=== PATIENT | male | born 1985 | race Caucasian/White ===

== ENCOUNTER 2022-06-02 21:23 | Emergency (ER) | payer OTHER, SELFPAY ==
[2022-06-02] VITALS (8 sets, daily range): BP systolic 150–187; BP diastolic 84–109; PULSE 75–96; RESP 13–20; TEMP 36.7; O2SAT 94–100
--- NOTE | ~2022-06-02 | CT_ITS ---
EXAMINATION: CT abdomen pelvis w con DATE: 06/02/2022 22:39 INDICATION: Severe stabbing periumbilical abdominal pain TECHNIQUE: Computed tomography (CT) of the abdomen and pelvis was performed with 100 CC Omnipaque 300 intravenous contrast. Automated exposure control and iterative reconstruction technique were employe d. Exam dose: 1754.61 mGy-cm total exam DLP. COMPARISON: None. FINDINGS: The lung bases are clear of infiltrate or consolidation aren't size is within upper normal range. No pericardial or pleural effusion. The liver, gallbladder, bile ducts, spleen, pancreas and pancreatic duct appear normal. Normal morphology of the adrenal glands. 8 mm probable lower pole right renal cyst. 2.9 cm exophytic anterior lower pole left renal cyst. No u rinary tract calculus or hydroureteronephrosis. The urinary bladder and prostate gland are unremarkab le. Normal caliber of the abdominal aorta. No intraperitoneal or retroperitoneal or pelvic mass lesion or adenopathy or ascites. Normal appendix. No bowel obstruction, bowel wall thickening, pneumatosis or intraperitoneal free air . Degenerative changes of the thoracic and lumbar spine. No suspicious osteolytic or osteosclerotic les ions. IMPRESSION: Renal cysts Normal appendix Reviewed, dictated and finalized at [facility]. Reviewed, dictated and finalized at [facility]. IMPRESSION: Renal cysts Normal appendix
--- NOTE | 2022-06-02 21:39 | ECG_ITS ---
Measurements Intervals [place] Rate: 77 P: 46 W[place]: 148 QRS: 6 QRSD: 101 T: 8 QT: 344 QTc: 391 Interpretive Statements SINUS RHYTHM LOW QRS VOLTAGE IN PRECORDIAL LEADS BORDERLINE R WAVE PROGRESSION, ANTERIOR LEADS BORDERLINE T WAVE ABNORMALITY- INFERIOR LEADS BASELINE ARTIFACT- I, II, III, AVR, AVL, AVF, V1-V3, V6 BORDERLINE ECG Electronically Signed On 06-03-2022 7:17:07 CDT by Bronson Schwarz D.O.
--- NOTE | 2022-06-02 21:41 | ED.ABDPAIN ---
HPI - Abdominal Pain General Chief Complaint: Abdominal Pain Stated Complaint: abd pain Time Seen by Provider: 06/02/22 21:32 Source: patient Mode of arrival: ambulatory Limitations: no limitations History of Present Illness HPI narrative: 37 year old male presents today with complaints of severe abdominal pain that started about 1 hours ago. Pain is in the umbilicus region and patient states it was tender for the last day. Patient with history of abdominal hernia, no abdominal surgeries. Last BM today and per patient was normal. Patient denies nausea at this time. Related Data Home Medications Medication Instructions Recorded Confirmed fluticasone propionate 50 1 spray intranasal BID PRN 10/07/19 06/27/21 mcg/actuation nasal ALLERGIES spray,suspension (Flonase Allergy Relief) bupropion HCl 150 mg 24 hr tablet, 150 mg PO QAM 06/27/21 06/27/21 extended release (Wellbutrin XL) testosterone enanthate 100 mg/0.5 100 mg subcut WEEKLY 06/27/21 06/27/21 mL subcutaneous auto-injector (Xyosted) Allergies Allergy/AdvReac Type Severity Reaction Status Date / Time Sulfa (Sulfonamide Allergy Unknown RASH, Verified 06/27/21 11:18 Antibiotics) DIFFICULTY BREATHING Review of Systems Review of Systems: CONSTITUTIONAL: Denies fever, chills, or sweats. EYES: Denies visual changes, redness, or discharge. ENT: Denies rhinorrhea, congestion, sore throat, or otalgia. CARDIOVASCULAR: Denies chest pain, palpitations, or edema. RESPIRATORY: Denies cough or dyspnea. GASTROINTESTINAL: Abdominal pain starting 1 hour ago. Denies nausea, vomiting, or diarrhea. GENITOURINARY: Denies dysuria or hematuria. SKIN: Denies rash or itching. MUSCULOSKELETAL: Denies back pain, joint pain, or myalgia. NEUROLOGIC: Denies headache, numbness, dizziness, or weakness. PSYCHIATRIC: Denies anxiety or depression. [facility] Past Medical History Medical History Back pain of thoracolumbar region (~2010) BMI 37.0-37.9, adult BMI 45.0-49.9, adult (~03/2017) DJD (degenerative joint disease) of thoracic spine (~2010) Hyperlipidemia, unspecified JADEN (obstructive sleep apnea) (~2010) Testicular hypofunction (~02/15/16) Dr. Roberson: urologist: (2018) Surgical History Surgical History H/O removal of testicle H/O vasectomy (~09/2019) Family History Family History Mother Diabetes mellitus Family history of obesity Father Diabetes mellitus Family history of cardiovascular disease Family history of arthritis Family history of malignant neoplasm of breast Family history of lupus erythematosus Other Family history of chronic obstructive pulmonary disease Family history of emphysema Family history of osteoporosis Social History Social History Smoking status: Never smoker Alcohol intake: current Exam Narrative: GENERAL: Ill-appearing, well-nourished, and in acute distress due to pain 10 out of 10 HEAD: Normocephalic, atraumatic. EYES: PERRLA and EOMI. NECK: Supple. No adenopathy or masses. No carotid bruits or JVD CHEST: Clear to auscultation. No respiratory distress. No wheezes rales or rhonchi HEART: Regular rate and rhythm. No murmur heard. Normal peripheral pulses. ABDOMEN: Tender, abdomen rigid. Nondistended, normal active bowel sounds. EXTREMITIES: Normal range of motion. No edema. SKIN: Warm, sweating, no rash. NEURO: No focal deficits. Alert and oriented x3. PSYCH: Normal mood and affect. Course Reevaluation(s) Reevaluation #1: Patient with improved pain after Bentyl, Pepcid, and Compazine. Labs and CT reviewed again. Patient to be discharged home with plan follow up with primary. Patient and in agreement with plan of care. Date: 06/03/22 Time: 00:05 Vital Signs Vital signs:
[2022-06-02] MEDS: ONDANSETRON INJ 4 MG/2 ML VIAL IV PUSH (21:49)
[2022-06-02] MEDS: fentaNYL CITRATE INJ (*CRX) 100 MCG/2 ML VIAL 50 MCG IV PUSH (21:49)
[2022-06-02] MEDS: SODIUM CHLORIDE 0.9% IV 1,000 ML 999 ML IV CONT (21:49)
[2022-06-02 21:56] LABS: Basophils Absolute Auto 0.1 K/mm3 (0.0-0.1); Basophils Percent Auto 0.5 % (0.2-1.2); Eosinophils Absolute Auto 0.2 K/mm3 (0-0.3); Eosinophils Percent Auto 2.5 % (0-4.4); Hematocrit 51.3 % (42.0-52.0); Hemoglobin 17.1 g/dL (14.0-18.0); Immature Granulocyte Absolute 0.11 K/mm3 (0.00-0.031); Immature Granulocyte Percent A 1.2 % (0-0.5); Lymphocytes Absolute Auto 3.28 K/mm3 (0.9-3.2); Mean Corpuscular HGB Conc 33.3 g/dl (32-36); Mean Corpuscular Hemoglobin 28.5 pg (26-34); Mean Corpuscular Volume 85.5 fl (80-100); Mean Platelet Volume 10.1 fl (7.4-10.4); Monocytes Absolute Auto 0.6 K/mm3 (0.1-0.6); Monocytes Percent Auto 6.8 % (2.6-8.5); Neutrophils Absolute Auto 4.8 K/mm3 (1.3-6.7); Platelet Count Result 177 k/mm3 (150-375); Red Cell Distribution Width 14.6 % (11.5-14.5); White Blood Count 9.1 K/mm3 (4.5-10.0)
--- NOTE | 2022-06-02 21:58 | PC.NURSE ---
Pt refusing straight cath at this time.
[2022-06-02 22:05] LABS: INR 0.9; Prothrombin Time 12.2 Seconds (11.1-14.7)
[2022-06-02 22:06] LABS: Partial Thromboplastin Time 27.3 SECONDS (22.3-36.8)
[2022-06-02 22:08] LABS: Appearance Urine Clear (Clear); Bilirubin Urine Negative (Negative); Blood Urine Negative (Negative); Color Urine Yellow (Yellow); Glucose Urine UA Negative (Negative); Ketones Urine Negative (Negative); Leukocyte Esterase Ur Negative LEU/UL (Negative); Nitrate Urine Negative (Negative); Protein Urine Negative (Negative); Urobilinogen Urine 0.2 mg/dL (<2.0)
[2022-06-02 22:08] LABS: Alanine Aminotransferase 32 U/L (6-50); Albumin Level 4.5 g/dL (3.5-5.1); Alkaline Phosphatase 108 U/L (38-126); Anion Gap 7 mmol/L (8-16); Aspartate Amino Transferase 22 U/L (17-59); Bilirubin,Total 0.7 mg/dL (0.2-1.3); Blood Urea Nitrogen 14 mg/dL (9-20); Calcium 9.4 mg/dL (8.4-10.2); Carbon Dioxide 28 mmol/L (22-30); Chloride 104 mmol/L (98-107); Estimated CRCL calculation 132 ml/min; Estimated Glomerular Filt Rate > 60; Glucose 106 mg/dL (65-110); Lipase 60 U/L (23-300); Potassium 3.9 mmol/L (3.4-5.0); Sodium 139 mmol/L (137-145)
[2022-06-02 22:11] LABS: Add Urine Microscopic? NO
[2022-06-02 22:20] LABS: Troponin I < 0.012 ng/mL (0.000-0.034)
[2022-06-02] MEDS: DICYCLOMINE HCL INJ 20 MG/2 ML VIAL IM (23:13)
[2022-06-02] MEDS: FAMOTIDINE 20 MG/2 ML VIAL IV PUSH (23:13)
[2022-06-02] MEDS: PROCHLORPERAZINE EDISYLATE 10 MG/2 ML VIAL IV PUSH (23:13)
[2022-06-02 23:31] LABS: Lactic Acid Reflex 1.3 mmol/L (0.7-2.0)
[2022-06-03 00:33] VITALS: BP 151/84; PULSE 64; RESP 16; O2SAT 95
== END 2022-06-03 00:35 | disposition home or self-care (01) ==
PROVIDERS: Emergency Medicine; Emergency Provider Nurse Practitioner Family; PCP Family Medicine Sports Medicine
DX: R10.84 Generalized abdominal pain (principal); E78.5 Hyperlipidemia, unspecified; G47.33 Obstructive sleep apnea (adult) (pediatric); M47.814 Spondylosis without myelopathy or radiculopathy, thoracic region
CPT/HCPCS: 36415; 74177; 80053; 81003; 83605; 83690; 84484; 85025; 85610; 85730; 93005; 96361; 96374; 96375; 99284; J0500; J0780; J2405; J3010; J7030; Q9967

== ENCOUNTER 2024-06-01 09:00 | Emergency (ER) | payer BC, SELFPAY ==
--- NOTE | ~2024-06-01 | XR_ITS ---
EXAMINATION: XR elbow RT min 3V DATE: 06/01/2024 09:26 INDICATION: Right elbow pain. Fall. TECHNIQUE: 3 views of right elbow were obtained. COMPARISON: None. FINDINGS: Bone alignment is normal. No fracture. There is mild elbow joint osteoarthritis. No elbow j oint effusion. There is soft tissue swelling overlying the olecranon. IMPRESSION: 1. Mild elbow joint osteoarthritis. Reviewed, dictated and finalized at [facility].
[2024-06-01 09:07] VITALS: BP 116/87; PULSE 77; RESP 16; TEMP 36.4; O2SAT 99
--- NOTE | 2024-06-01 09:17 | ED.GENADULT ---
HPI - General Adult General Chief complaint: Extremity Injury, Upper Stated complaint: Injured Right Elbow Source: patient Mode of arrival: ambulatory Limitations: no limitations History of Present Illness HPI narrative: Pt presents for evaluation of right elbow pain for the past 3 days. He was at [place] water park [place] when he [place] backward and hit his right elbow against a concrete ledge. He did not his head. No loss of consciousness. He is not on blood thinners. At rest his pain is controlled, but with movement his pain increases to 7/10 in severity. No radicular component. No paresthesias. He took 400 mg of ibuprofen without considerable improvement in his symptoms or after. He is right-hand dominant. Related Data Home Medications Medication Instructions Recorded Confirmed fluticasone propionate 50 1 spray intranasal BID PRN 10/07/19 09/07/23 mcg/actuation nasal ALLERGIES spray,suspension (Flonase Allergy Relief) testosterone enanthate 100 mg/0.5 100 mg subcut WEEKLY 06/27/21 09/07/23 mL subcutaneous auto-injector (Xyosted) anastrozole 1 mg tablet 1 mg PO DAILY 09/07/23 09/07/23 bupropion HCl 150 mg 24 hr tablet, 300 mg PO QAM 09/07/23 09/07/23 extended release (Wellbutrin XL) cetirizine 5 mg tablet 5 mg PO DAILY PRN 09/07/23 09/07/23 Allergies Allergy/AdvReac Type Severity Reaction Status Date / Time Sulfa (Sulfonamide Allergy Unknown RASH, Verified 09/07/23 13:28 Antibiotics) DIFFICULTY BREATHING Review of Systems Review of Systems: CONSTITUTIONAL: Denies fever, chills, or sweats. EYES: Denies visual changes, redness, or discharge. ENT: Denies rhinorrhea, congestion, sore throat, or otalgia. CARDIOVASCULAR: Denies chest pain, palpitations, or edema. RESPIRATORY: Denies cough or dyspnea. GASTROINTESTINAL: Denies abdominal pain, nausea, vomiting, or diarrhea. GENITOURINARY: Denies dysuria or hematuria. SKIN: Denies rash or itching. MUSCULOSKELETAL:Reports right elbow pain NEUROLOGIC: Denies headache, numbness, dizziness, or weakness. PSYCHIATRIC: Denies anxiety or depression. [facility] Past Medical History Medical History Back pain of thoracolumbar region (~2010) BMI 37.0-37.9, adult BMI 45.0-49.9, adult (~03/2017) Diabetes DJD (degenerative joint disease) of thoracic spine (~2010) Hyperlipidemia, unspecified JADEN (obstructive sleep apnea) (~2010) Testicular hypofunction (~02/15/16) Dr. Roberson: urologist: (2018) Surgical History Surgical History H/O removal of testicle H/O vasectomy (~09/2019) Family History Family History Mother Diabetes mellitus Family history of obesity Father Diabetes mellitus Family history of cardiovascular disease Family history of arthritis Family history of malignant neoplasm of breast Family history of lupus erythematosus Other Family history of chronic obstructive pulmonary disease Family history of emphysema Family history of osteoporosis Social History Social History Smoking status: Never smoker Alcohol intake: current Gender identity (if verbalized by the patient): Male Spiritual care concerns: No Exam Narrative: GENERAL: Well-appearing, well-nourished, and in no acute distress. HEAD: Normocephalic, atraumatic. EYES: PERRLA and EOMI. ENT: Nares clear, no rhinorrhea or epistaxis. Mucous membranes moist. Oropharynx without tonsillar hypertrophy exudate or other lesions. Bilateral TMs pearly hardin nonbulging NECK: Supple. No adenopathy or masses. No carotid bruits or JVD CHEST: Clear to auscultation. No respiratory distress. No wheezes rales or rhonchi HEART: Regular rate and rhythm. No murmur heard. Normal peripheral pulses. [facility]BD[facility]
== END 2024-06-01 09:48 | disposition home or self-care (01) ==
PROVIDERS: Emergency Provider Nurse Practitioner; PCP Family Medicine
DX: S50.01XA Contusion of right elbow, initial encounter (principal); W19.XXXA Unspecified fall, initial encounter; E11.9 Type 2 diabetes mellitus without complications; M47.814 Spondylosis without myelopathy or radiculopathy, thoracic region; E78.5 Hyperlipidemia, unspecified; Z98.52 Vasectomy status
CPT/HCPCS: 73080; 99213; A4565; G0463

== ENCOUNTER 2024-08-10 12:17 | Emergency (ER) | payer BC, SELFPAY ==
[2024-08-10 12:34] VITALS: BP 126/67; PULSE 86; RESP 16; TEMP 36.7; O2SAT 98
[2024-08-10 12:55] LABS: EDCOVIDSCREEN Positive (Negative); EDINFLUASCREEN Negative (Negative); EDINFLUBSCREEN Negative (Negative); EDSTREPNEGPOS1 Negative (Negative)
--- NOTE | 2024-08-10 17:25 | ED.URI ---
HPI - URI/Sore Throat General Chief Complaint: Upper Respiratory Infection Stated Complaint: Sore Throat Time Seen by Provider: 08/10/24 13:11 Source: patient and RN notes reviewed Mode of arrival: ambulatory Limitations: no limitations History of Present Illness HPI Narrative: Patient presents today complaining of headache, sore throat, fatigue, nasal congestion. Symptoms began yesterday. Denies shortness of breath or chest pain. He has been taking Sudafed and Flonase without relief. Related Data Home Medications Medication Instructions Recorded Confirmed fluticasone propionate 50 1 spray intranasal BID PRN 10/07/19 08/10/24 mcg/actuation nasal ALLERGIES spray,suspension (Flonase Allergy Relief) testosterone enanthate 100 mg/0.5 100 mg subcut WEEKLY 06/27/21 08/10/24 mL subcutaneous auto-injector (Xyosted) anastrozole 1 mg tablet 1 mg PO DAILY 09/07/23 08/10/24 bupropion HCl 150 mg 24 hr tablet, 300 mg PO QAM 09/07/23 08/10/24 extended release (Wellbutrin XL) cetirizine 5 mg tablet 5 mg PO DAILY 09/07/23 08/10/24 semaglutide 2 mg/dose (8 mg/3 mL) 2 mg subcut WEEKLY 08/10/24 08/10/24 subcutaneous pen injector (Ozempic) Allergies Allergy/AdvReac Type Severity Reaction Status Date / Time Sulfa (Sulfonamide Allergy Unknown RASH, Verified 08/10/24 13:12 Antibiotics) DIFFICULTY BREATHING Review of Systems Review of Systems: CONSTITUTIONAL: Denies body aches, fever, chills, or sweats.+ fatigue EYES: Denies visual changes, redness, or discharge. ENT: Denies rhinorrhea, or otalgia.+ sore throat, congestion CARDIOVASCULAR: Denies chest pain, palpitations, or edema. RESPIRATORY: Denies cough or dyspnea. GASTROINTESTINAL: Denies abdominal pain, nausea, vomiting, or diarrhea. GENITOURINARY: Denies dysuria or hematuria. SKIN: Denies rash, itching, or wounds. MUSCULOSKELETAL: Denies back pain, joint pain, or myalgia. NEUROLOGIC: Denies numbness, tingling, or weakness.+ headache PSYCH: Denies depression or anxiety. [facility] Past Medical History Medical History Back pain of thoracolumbar region (~2010) BMI 37.0-37.9, adult BMI 45.0-49.9, adult (~03/2017) Diabetes DJD (degenerative joint disease) of thoracic spine (~2010) Hyperlipidemia, unspecified JADEN (obstructive sleep apnea) (~2010) Testicular hypofunction (~02/15/16) Dr. Roberson: urologist: (2018) Surgical History Surgical History (Updated 08/10/24 @ 17:29 by Anastasiya Kate, [facility], ) H/O removal of testicle H/O vasectomy (~09/2019) History of placement of ear tubes Family History Family History (Reviewed 08/10/24 @ 17:29 by Anastasiya Kate, [facility], ) Mother Diabetes mellitus Family history of obesity Father Diabetes mellitus Family history of cardiovascular disease Family history of arthritis Family history of malignant neoplasm of breast Family history of lupus erythematosus Other Family history of chronic obstructive pulmonary disease Family history of emphysema Family history of osteoporosis Social History Social History (Reviewed 08/10/24 @ 17:29 by Anastasiya Kate, [facility], ) Smoking status: Never smoker Alcohol intake: current Gender identity (if verbalized by the patient): Male Spiritual care concerns: No Comments At time of signature, I have reviewed and agree with nursing past medical, surgical, social and family history unless otherwise noted. Please see nursing chart for further information. There is no relevant family history pertinent to the presenting complaint Exam Narrative: GENERAL: Well-appearing, well-nourished, and in no acute distress. HEAD: Normocephalic, atraumatic. EYES: EOMI. No redness or drainage. Conjunctivae normal. ENT: Mucous membranes pink and moist. Nares clear. No rhinorrhea. TMs normal bilaterally. Patient has bilateral ear tubes. The right 1 has become dislodged pain is sitting in t
== END 2024-08-10 13:28 | disposition home or self-care (01) ==
PROVIDERS: Emergency Provider Nurse Practitioner; PCP Family Medicine
DX: U07.1 COVID-19 (principal); E11.9 Type 2 diabetes mellitus without complications; E78.5 Hyperlipidemia, unspecified; M47.814 Spondylosis without myelopathy or radiculopathy, thoracic region
CPT/HCPCS: 87081; 87635; 87804; 87880; 99213; G0463

== ENCOUNTER 2024-11-08 11:28 | Emergency (ER) | payer BC, SELFPAY ==
[2024-11-08 11:50] VITALS: BP 126/82; PULSE 86; RESP 18; TEMP 36.2; O2SAT 100
--- NOTE | 2024-11-08 12:26 | ED.URI ---
HPI - URI/Sore Throat General Chief Complaint: Upper Respiratory Infection Stated Complaint: Sinus Infection Time Seen by Provider: 11/08/24 12:19 Source: patient and RN notes reviewed Mode of arrival: ambulatory Limitations: no limitations History of Present Illness HPI Narrative: Patient presents today complaining of a 5 day history of nasal congestion, chest congestion, cough. Denies fever or shortness of breath. He has been taking Sudafed and Mucinex with mild relief. Denies any known sick contacts, but has been traveling frequently. Denies history of asthma or COPD. He is a nonsmoker. Cough is keeping him awake at night. Related Data Home Medications ?Medication ?Instructions ?Recorded ?Confirmed ?Last Taken ?Type fluticasone propionate 50 1 spray intranasal BID PRN 10/07/19 11/08/24 Unknown History mcg/actuation nasal ALLERGIES spray,suspension (Flonase Allergy Relief) testosterone enanthate 100 mg/0.5 100 mg subcut WEEKLY 06/27/21 11/08/24 Unknown History mL subcutaneous auto-injector (Xyosted) anastrozole 1 mg tablet 1 mg PO DAILY 09/07/23 11/08/24 Unknown History bupropion HCl 150 mg 24 hr tablet, 300 mg PO QAM 09/07/23 11/08/24 Unknown History extended release (Wellbutrin XL) semaglutide 2 mg/dose (8 mg/3 mL) 2 mg subcut WEEKLY 08/10/24 11/08/24 Unknown History subcutaneous pen injector (Ozempic) Allergies Allergy/AdvReac Type Severity Reaction Status Date / Time Sulfa (Sulfonamide Allergy Unknown RASH, Verified 11/08/24 12:07 Antibiotics) DIFFICULTY BREATHING Review of Systems Review of Systems: CONSTITUTIONAL: Denies body aches, fever, chills, or sweats. EYES: Denies visual changes, redness, or discharge. ENT: Denies rhinorrhea, sore throat, or otalgia.+ congestion CARDIOVASCULAR: Denies chest pain, palpitations, or edema. RESPIRATORY:+ cough, chest congestion. GASTROINTESTINAL: Denies abdominal pain, nausea, vomiting, or diarrhea. GENITOURINARY: Denies dysuria or hematuria. SKIN: Denies rash, itching, or wounds. MUSCULOSKELETAL: Denies back pain, joint pain, or myalgia. NEUROLOGIC: Denies headache, numbness, tingling, or weakness. PSYCH: Denies depression or anxiety. [facility] Past Medical History Medical History Diabetes Back pain of thoracolumbar region (~2010) BMI 45.0-49.9, adult (~03/2017) DJD (degenerative joint disease) of thoracic spine (~2010) BMI 37.0-37.9, adult Hyperlipidemia, unspecified JADEN (obstructive sleep apnea) (~2010) Testicular hypofunction (~02/15/16) Dr. Roberson: urologist: (2018) Surgical History Surgical History History of placement of ear tubes H/O vasectomy (~09/2019) H/O removal of testicle Family History Family History Mother Diabetes mellitus Family history of obesity Father Diabetes mellitus Family history of cardiovascular disease Family history of arthritis Family history of malignant neoplasm of breast Family history of lupus erythematosus Other Family history of chronic obstructive pulmonary disease Family history of emphysema Family history of osteoporosis Social History Social History Smoking status: Never smoker Alcohol intake: current Gender identity (if verbalized by the patient): Male Spiritual care concerns: No Comments At time of signature, I have reviewed and agree with nursing past medical, surgical, social and family history unless otherwise noted. Please see nursing chart for further information. There is no relevant family history pertinent to the presenting complaint Exam Narrative: GENERAL: Well-appearing, well-nourished, and in no acute distress. HEAD: Normocephalic, atraumatic. EYES: EOMI. No redness or drainage. Conjunctivae normal. ENT: Mucous membranes pink and moist. Nares mildly congested. No rhinorrhea. TMs normal bilaterally. Throat normal. Uvula midline. NECK: Normal AROM. Supple. No lymphadenopathy. CHEST: No respiratory distress. Clear to auscultation. HEART: Regular rate and rhythm. No murmur appreciated. EXTREMITIES: Normal range of motion. No edema. SKIN: Warm, dry, no rash. Capillary refill normal. Normal skin turgor. NEURO: No focal deficits. Alert and oriented x3. Gait steady. PSYCH: Normal affect. No signs of depression or anxiety. Course Course Level of Care: Express Care Visit Vital Signs Vital signs: Vital Signs Temperature 97.1 F L 11/08/24 11:50 Pulse Rate 86 11/08/24 11:50 Respiratory Rate 18 11/08/24 11:50 Blood Pressure 126/82 11/08/24 11:50 Pulse Oximetry 100 11/08/24 11:50 Temperature 97.1 F L 11/08/24 11:50 Pulse Rate 86 11/08/24 11:50 Respiratory Rate 18 11/08/24 11:50 Blood Pressure 126/82 11/08/24 11:50 Pulse Oximetry 100 11/08/24 11:50 Oxygen Delivery Room Air 11/08/24 12:00 Reviewed MDM - URI/Sore Throat MDM Narrative Medical decision making narrative: Patient declines testing for influenza and COVID. Symptoms likely viral in etiology. Discussed [id number] medication use and duration of illness. Prescription for Cheratussin sent to pharmacy to help with cough. Anticipatory guidance given. Differential Diagnosis Differential diagnosis: Likely upper respiratory infection, viral infection, bronchitis and other (Pneumonia) Critical Care Time Critical Care Time Critical Care Time: No Discharge Plan Discharge Clinical Impression: Upper respiratory infection Qualifiers: URI type: unspecified URI Qualified Code(s): J06.9 - Acute upper respiratory infection, unspecified Patient Disposition: Home, Self-Care Condition: Stable Instructions: Upper Respiratory Infection (DC) Additional Instructions: Your symptoms are likely due to a viral illness, which is not treated with antibiotics. Virus symptoms can last for up to 7-10days. Take Tylenol or ibuprofen for pain or fever. Take the Cheratussin for cough. Do not drive within 6 hours of taking the Cheratussin as it can make you drowsy. Rest and stay hydrated. Follow up with your PCP in 5-7 days if symptoms are not improving. Go to the ER immediately if you develop shortness of breath, difficulty swallowing, or any other concerning symptoms. Your blood pressure was elevated above 120/80 today at Urgent Care. This puts you above the threshold for follow up. Please schedule a followup visit with your personal physician as soon as possible, for further evaluation and treatment. Even blood pressure exceeding 120/80 may indicate pre-hypertension. Patient Language: Kosovan Prescriptions: New codeine-guaifenesin 10-100 mg/5 mL liquid 5 ml PO Q6H PRN (Reason: cough) Qty: 120 0RF No Action Ozempic 2 mg/dose (8 mg/3 mL) pen injector 2 mg SUBCUT WEEKLY Xyosted 100 mg/0.5 mL auto-injector 100 mg subcut WEEKLY bupropion HCl [Wellbutrin XL] 150 mg tablet extended release 24 hr 300 mg PO QAM anastrozole 1 mg tablet 1 mg PO DAILY fluticasone propionate [Flonase Allergy Relief] 50 mcg/actuation spray,suspension 1 spray NASAL BID PRN (Reason: ALLERGIES) Rx Instructions: administer into each nostril multivitamin Capsule 1 cap PO DAILY Qty: 30 0RF Follow-up/Referrals: Hetal,Gigi Jaramillo MD [Primary Care Provider] - Time of Disposition: 12:31
== END 2024-11-08 12:33 | disposition home or self-care (01) ==
PROVIDERS: Emergency Provider Nurse Practitioner; PCP Family Medicine
DX: J06.9 Acute upper respiratory infection, unspecified (principal); E11.9 Type 2 diabetes mellitus without complications; E78.5 Hyperlipidemia, unspecified; M47.814 Spondylosis without myelopathy or radiculopathy, thoracic region; Z98.52 Vasectomy status
CPT/HCPCS: 99213; G0463